=== PATIENT | female | born 1990 | race Hispanic/Latino ===

== ENCOUNTER 2022-01-09 22:17 | Emergency (ER) | payer OTHER ==
[~2022-01-09] VITALS: Ht 154.9 cm; Wt 59.0 kg
[2022-01-09] MEDS ORDERED: PENICILLIN V P500 MG PO (23:26)
[2022-01-09] MEDS ORDERED: NAPROSYN500 MG PO (23:26)
== END 2022-01-09 23:35 | disposition home or self-care (01) ==
LOC: ER 23:23
DX: K04.7 Periapical abscess without sinus (principal)
CPT/HCPCS: 99282